=== PATIENT | male | born 1950 | race Caucasian/White ===

== ENCOUNTER 2018-07-03 08:15 | Day surgery (SDC) | payer MEDICARE ==
[2018-06-29 10:01] VITALS: BMI 23.7
[~2018-07-03 08:15] MED LIST: LACTATED RINGERS 1,000 ML IV SCH; LIDOCAINE 1% 20 ML VIAL (10MG/ML) FOR IV START INTRADERMA PRN
[2018-07-03] MEDS ORDERED: LIDOCAINE 1% INJ 10MG/ML (20 ML MDV) ONE (08:47)
[2018-07-03] MEDS ORDERED: PROPOFOL 10 MG/ML 20 ML VIAL IV ONE (08:47)
[2018-07-03 08:49] VITALS: RESP 16; TEMP 97
--- NOTE | 2018-07-03 08:51 | P.GSHP ---
History of Present Illness H&P Date: 07/03/18 Chief Complaint: Screening colonoscopy This is a 67-year-old male referred from Dr. Doug Pemberton. Patient is today for screening colonoscopy. He denies a significant GI complaints. He's never had a colonoscopy before. Past Medical History Past Medical History: Cancer Additional Past Medical History / Comment(s): PROSTATE CANCER History of Any Multi-Drug Resistant Organisms: None Reported Past Surgical History: Prostate Surgery Additional Past Surgical History / Comment(s): PROSTATE REMOVED Past Anesthesia/Blood Transfusion Reactions: No Reported Reaction Smoking Status: Former smoker - Past Family History Father Family Medical History: Cancer Medications and Allergies Home Medications Medication Instructions Recorded Confirmed Type Glucosamine/Chondr Le A Sod [Osteo 1 each PO DAILY 06/29/18 07/03/18 History Bi-Flex Caplet] Allergies Allergy/AdvReac Type Severity Reaction Status Date / Time No Known Allergies Allergy Verified 07/03/18 08:35 Surgical - Exam Vital Signs Temp Pulse Resp BP Pulse Ox 97.0 F L 56 L 16 122/74 99 07/03/18 08:42 07/03/18 08:42 07/03/18 08:42 07/03/18 08:42 07/03/18 08:42 - General well developed, no distress - Eyes PERRL - ENT normal pinna - Respiratory normal expansion - Cardiovascular Rhythm: regular - Abdomen Abdomen: soft, non tender Assessment and Plan Assessment: We'll perform screening colonoscopy.
--- NOTE | 2018-07-03 09:05 | P.OP ---
Date of Procedure: 07/03/18 Preoperative Diagnosis: Screening colonoscopy Postoperative Diagnosis: Diverticulosis Procedure(s) Performed: Colonoscopy Anesthesia: MAC Surgeon: Moisés Fajardo Pathology: none sent Condition: stable Disposition: PACU Description of Procedure: The patient's placed on the endoscopy table in the lateral position. He received IV sedation. Digital rectal exam was performed which revealed no abnormalities. The flexible colonoscope was then placed patient anus and passed throughout the entire colon. The ileocecal valve was visualized. The cecum, ascending and transverse colon appeared normal. In the descending; there is mild diverticular changes. Scope was then brought back the rectum this appeared normal. Scope was withdrawn for patient.
[2018-07-03 09:49] VITALS: BP 124/78; PULSE 66
== END 2018-07-03 09:51 | disposition home or self-care (01) ==
LOC: ORWHC2ENDO 08:15
PROVIDERS: ATTEND Surgery
DX: Z12.11 Encounter for screening for malignant neoplasm of colon (principal); K57.30 Diverticulosis of large intestine without perforation or abscess without bleeding; Z85.46 Personal history of malignant neoplasm of prostate; Z87.891 Personal history of nicotine dependence; Z79.899 Other long term (current) drug therapy
CPT/HCPCS: J2001; J2704; G0121

== ENCOUNTER → 2019-12-06 | Outpatient (CLI) | payer MEDICARE ==
[2019-12-06 11:44] LABS: Basophils # (A) 0.1 k/uL (0-0.2); Basophils % (A) 1 %; Eosinophils # (A) 0.1 k/uL (0-0.7); Eosinophils % (A) 2 %; HCT 44.4 % (39.0-53.0); HGB 13.8 gm/dL (13.0-17.5); Lymphocytes # (A) 1.2 k/uL (1.0-4.8); Lymphocytes % (A) 18 %; MCH 28.1 pg (25.0-35.0); MCHC 31.1 g/dL (31.0-37.0); MCV 90.2 fL (80.0-100.0); Mean Platelet Volume 7.2; Monocytes # (A) 0.5 k/uL (0-1.0); Monocytes % (A) 7 %; Neutrophils # (A) 4.9 k/uL (1.3-7.7); Neutrophils % (A) 70 %; Platelet Count 359 k/uL (150-450); RBC 4.92 m/uL (4.30-5.90); RDW 13.3 % (11.5-15.5)
[2019-12-06 11:52] LABS: Potassium 4.5 mmol/L (3.5-5.1)
== END | disposition home or self-care (01) ==
LOC: LABPAT 10:38
PROVIDERS: ATTEND Orthopaedic Surgery
DX: Z01.812 Encounter for preprocedural laboratory examination (principal); G56.02 Carpal tunnel syndrome, left upper limb; M65.342 Trigger finger, left ring finger
CPT/HCPCS: 36415; 80051; 85025

== ENCOUNTER 2019-12-19 09:44 | Day surgery (SDC) | payer MEDICARE ==
[2019-12-18 10:40] VITALS: BMI 25.0
--- NOTE | 2019-12-18 22:13 | HP ---
HISTORY AND PHYSICAL REASON FOR ADMISSION: Surgery is scheduled for 12/19/2019 HISTORY OF PRESENT ILLNESS: Ignacio Bunn is a 69-year-old patient seen with symptomatic left carpal tunnel syndrome as well as a symptomatic left ring finger trigger finger. We discussed options. He elected to proceed with release A1 chase, left ring finger and decompression left median nerve. Consent was obtained. PAST MEDICAL HISTORY: Noncontributory. PAST SURGICAL HISTORY: Noncontributory. DAILY MEDICATIONS: None. ALLERGIES: None reported. SOCIAL HISTORY: Denies current tobacco use. PHYSICAL EXAMINATION: Physical evaluation of the left hand, he has a positive carpal compression and carpal Tinel's causing numbness, tingling throughout the median nerve distribution. He is tender along the A1 cahse area, left ring finger with clicking, catching and locking. He has decreased sensation throughout the median nerve distribution. There is a good radial pulse present. Good perfusion distally. RADIOGRAPHS: Radiographs of the left hand and wrist reveal some osteoarthritic changes. An EMG of left upper extremity reveals severe carpal tunnel syndrome. IMPRESSION: 1. Left carpal tunnel syndrome. 2. Left ring finger trigger finger. PLAN: 1. Decompression left median nerve. 2. Release A1 chase, left ring finger. Surgery scheduled for 12/19/2019. MMODL / IJN: [id number] /
[~2019-12-19 09:44] MED LIST changes: +DEXAMETHASONE SOD PHOSPHATE 10 MG/ML 1 ML VIAL IV ONE; +HYDROmorphone 0.5 MG/0.5 ML SYRINGE IVP PRN; -LACTATED RINGERS 1,000 ML IV SCH; +LIDOCAINE 1% (10MG/ML) FOR IV START INTRADERMA PRN; -LIDOCAINE 1% 20 ML VIAL (10MG/ML) FOR IV START INTRADERMA PRN; +MIDAZOLAM 2 MG/2 ML VIAL IV PRN; +ONDANSETRON 4 MG/2 ML VIAL IVP ONE; +SCOPOLAMINE 1.5MG/72HR PATCH TRANSDERM ONE
[2019-12-19 10:19] VITALS: TEMP 96.6
[2019-12-19] MEDS: LACTATED RINGERS 1,000 ML IV SCH ×2 (10:32→11:20)
[2019-12-19] MEDS ORDERED: MIDAZOLAM 2 MG/2 ML VIAL ONE (11:14)
[2019-12-19] MEDS ORDERED: PROPOFOL 10 MG/ML 20 ML VIAL IV ONE (11:14)
[2019-12-19] MEDS ORDERED: fentaNYL (PF) 50 MCG/ML 2 ML AMP ONE (11:14)
[2019-12-19] MEDS ORDERED: BUPIVACAINE (PF) 0.25% 30 ML VIAL SQ ONE ×2 (11:17)
--- NOTE | 2019-12-19 12:05 | P.OP ---
Date of Procedure: 12/19/19 Preoperative Diagnosis: 1. Left carpal tunnel syndrome 2. Left ring finger trigger finger Postoperative Diagnosis: 1. Left carpal tunnel syndrome 2. Left ring finger trigger finger Procedure(s) Performed: 1. Decompression left median nerve 2. Release A1 chase left ring finger Anesthesia: MAC, local Surgeon: Willian Mann Estimated Blood Loss (ml): 1 Pathology: none sent Condition: stable Disposition: PACU Indications for Procedure: 69-year-old patient seen with symptomatic left carpal tunnel syndrome along with a symptomatic left ring finger trigger finger. After treatment options were discussed, he elected to proceed with decompression left median nerve and release A1 chase left ring finger. He Operative Findings: see description of procedure Description of Procedure: Patient was taken to the operative suite. The patient received preoperative IV antibiotics. A well-padded tourniquet placed proximal left upper extremity. Left upper extremity prepped and draped in the normal sterile orthopedic f ashion. Proposed incision sites were infiltrated with quarter percent plain Marcaine totaling 15 mL. Once sufficient local analgesia was noted the extremity was elevated and the tourniquet was insufflated to 250. I began by addressing the carpal tunnel release. An incision was made at the distal volar wrist crease and extended distally approximately 3 cm in line with the fourth metacarpal sharply through skin. I now dissected down through the palmar fascia to the transcarpal ligament. I made a small incision in the transverse carpal ligament. I now the completed the release proximally and distally with blunt Metzenbaums. There was complete release of transcarpal ligament. There was good decompression of the nerve. There was good hemostasis. I now turned my attention to the left ring finger trigger finger. I made a small incision in the area A1 chase. I now dissected down to the A1 chase. I identified the A1 chase. I now release A1 chase. There was complete release of A1 chase with good free excursion of the tendon and no locking or impingement. There appeared be good hemostasis. Both wounds were irrigated with saline. Both incisions were proximal nylon suture. Sterile dressings were applied. The tourniquet was released and immediate capillary refill noted of all digits. The patient was awakened, transferred to a bed and recovery stable condition.
[2019-12-19 12:16] VITALS: RESP 16
[2019-12-19 12:38] VITALS: BP 108/53; PULSE 77
== END 2019-12-19 12:43 | disposition home or self-care (01) ==
LOC: OR 09:44
PROVIDERS: ATTEND Orthopaedic Surgery
DX: G56.02 Carpal tunnel syndrome, left upper limb (principal); M65.342 Trigger finger, left ring finger; Z85.46 Personal history of malignant neoplasm of prostate; Z90.79 Acquired absence of other genital organ(s)
CPT/HCPCS: 26055; 64721; J2250; J1100; J0690; J2405; J3010; J2704

== ENCOUNTER → 2021-02-24 | Outpatient (CLI) | payer MEDICARE ==
[2021-02-24 11:51] LABS: Basophils # (A) 0.1 k/uL (0-0.2); Basophils % (A) 1 %; Eosinophils # (A) 0.2 k/uL (0-0.7); Eosinophils % (A) 3 %; HCT 45.7 % (39.0-53.0); HGB 14.8 gm/dL (13.0-17.5); Lymphocytes # (A) 1.3 k/uL (1.0-4.8); Lymphocytes % (A) 23 %; MCH 28.9 pg (25.0-35.0); MCHC 32.3 g/dL (31.0-37.0); MCV 89.7 fL (80.0-100.0); Mean Platelet Volume 7.3; Monocytes # (A) 0.3 k/uL (0-1.0); Monocytes % (A) 5 %; Neutrophils # (A) 3.7 k/uL (1.3-7.7); Neutrophils % (A) 67 %; Platelet Count 300 k/uL (150-450); RDW 13.5 % (11.5-15.5); WBC 5.6 k/uL (3.8-10.6)
[2021-02-24 12:06] LABS: Potassium 4.1 mmol/L (3.5-5.1)
== END | disposition home or self-care (01) ==
LOC: LABPAT 11:19
PROVIDERS: ATTEND Orthopaedic Surgery
DX: Z01.812 Encounter for preprocedural laboratory examination (principal); G56.01 Carpal tunnel syndrome, right upper limb
CPT/HCPCS: 36415; 80051; 85025

== ENCOUNTER 2021-03-05 14:17 | Day surgery (SDC) | payer MEDICARE ==
[2021-03-03 10:56] VITALS: BMI 25.0
--- NOTE | 2021-03-04 18:05 | HP ---
HISTORY AND PHYSICAL REASON FOR ADMISSION: Surgery scheduled for 03/05/2021 HISTORY OF PRESENT ILLNESS: Feliberto Bunn is a 70-year-old patient seen with symptomatic right carpal tunnel syndrome. We discussed options for treatment. He elected to proceed with decompression of right median nerve. Consent was obtained. PAST MEDICAL HISTORY: Noncontributory. SURGICAL HISTORY: Noncontributory. DAILY MEDICATIONS: Aspirin. ALLERGIES: None. SOCIAL HISTORY: Denies tobacco use. PHYSICAL EVALUATION: Evaluation of the right hand: He has a positive carpal tunnel causing numbness and tingling throughout the median nerve distribution. He does have some degree sensation throughout the median nerve distribution. He is nontender along the A1 chase areas. He has good perfusion distally. There is a good radial pulse present. RADIOGRAPHS: Radiographs were obtained of the right wrist revealing osteoarthritic changes. EMG of the upper extremities revealed carpal tunnel syndrome. IMPRESSION: Right carpal tunnel syndrome. PLAN: Decompression, right median nerve. Surgery scheduled for 03/05/2021. MMODL / IJN: [id number] /
[~2021-03-05 14:17] MED LIST changes: -DEXAMETHASONE SOD PHOSPHATE 10 MG/ML 1 ML VIAL IV ONE; +DEXAMETHASONE SOD PHOSPHATE 4 MG/ML 1 ML VIAL IV ONE; +LACTATED RINGERS 1,000 ML IV SCH; -LIDOCAINE 1% (10MG/ML) FOR IV START INTRADERMA PRN; -MIDAZOLAM 2 MG/2 ML VIAL IV PRN; -SCOPOLAMINE 1.5MG/72HR PATCH TRANSDERM ONE
[2021-03-05 14:59] VITALS: TEMP 97.8
[2021-03-05] MEDS ORDERED: fentaNYL (PF) 50 MCG/ML 2 ML AMP ONE (16:03)
[2021-03-05] MEDS ORDERED: MIDAZOLAM 2 MG/2 ML VIAL ONE (16:03)
[2021-03-05] MEDS ORDERED: PROPOFOL 10 MG/ML 20 ML VIAL IV ONE (16:03)
[2021-03-05] MEDS ORDERED: KETAMINE 10 MG/ML 20 ML VIAL ONE (16:03)
[2021-03-05] MEDS ORDERED: BUPIVACAINE (PF) 0.25% 30 ML VIAL SQ ONE (16:08)
--- NOTE | 2021-03-05 16:40 | P.OP ---
Date of Procedure: 03/05/21 Preoperative Diagnosis: Right carpal tunnel syndrome Postoperative Diagnosis: Right carpal tunnel syndrome Procedure(s) Performed: Decompression right median nerve Anesthesia: MAC, local Surgeon: Willian Mann Estimated Blood Loss (ml): 0 Pathology: none sent Condition: stable Disposition: PACU Indications for Procedure: 70-year-old patient seen with symptomatic right carpal syndrome. After treatment options were discussed, he elected to proceed with decompression right median nerve. Operative Findings: See description of procedure Description of Procedure: The patient was taken to the operative suite. Patient underwent IV sedation by the department of anesthesia. He did received preoperative IV antibiotics. A well-padded tourniquet was placed about the right proximal upper extremity. The right upper extremity was prepped and draped in the normal sterile orthopedic fashion. The proposed incision site was infiltrated with 10 mL quarter percent plain Marcaine. When sufficient local analgesia was noted the tourniquet was insufflated to 250. I made an incision beginning at the distal volar wrist crease extending distally approximately 3 cm in line with the fourth metacarpal sharply through skin. I dissected down through the subcutaneous soft tissues and through the palmar fascia to the transverse carpal ligament. I made a small incision through the transverse carpal ligament. I completed the release proximally and distally with blunt Metzenbaums. I noted complete release of the transverse carpal ligament and good decompression of the nerve. There was good hemostasis. The wound was irrigated. Skin margins were approximated with nylon suture. I applied sterile dressings. The tourniquet was released with immediate capillary refill to all digits noted. A sterile web roll and Coban we re applied. Patient was awakened, transferred to a bed and recovery stable condition.
[2021-03-05 16:53] VITALS: BP 126/77; PULSE 63; RESP 16
== END 2021-03-05 17:49 | disposition home or self-care (01) ==
LOC: OR 14:17
PROVIDERS: ATTEND Orthopaedic Surgery
DX: G56.01 Carpal tunnel syndrome, right upper limb (principal); Z79.82 Long term (current) use of aspirin; H40.9 Unspecified glaucoma; Z87.891 Personal history of nicotine dependence; Z85.46 Personal history of malignant neoplasm of prostate
CPT/HCPCS: 64721; J2250; J1100; J0690; J2405; J3010; J2704

== ENCOUNTER 2021-11-13 13:21 | Emergency (ER) | payer OTHER, MEDICARE ==
[2021-11-13 13:28] VITALS: RESP 18
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
[2021-11-13 14:58] VITALS: BP 129/76; PULSE 76; TEMP 98.6
== END 2021-11-13 14:57 | disposition home or self-care (01) ==
LOC: EC 13:21
DX: S16.1XXA Strain of muscle, fascia and tendon at neck level, initial encounter (principal); V43.62XA Car passenger injured in collision with other type car in traffic accident, initial encounter
CPT/HCPCS: 70450; 72125; 99284